=== PATIENT | male | born 1970 | race Caucasian/White ===

== ENCOUNTER 2020-05-25 09:34 | Emergency (ER) | payer SELFPAY ==
[2020-05-25 09:34] VITALS: BP 150/102; PULSE 77; RESP 24; TEMP 36.9; O2SAT 96; BMI 24.3
--- NOTE | 2020-05-25 09:44 | RAD_ITS ---
STUDY: X-RAY - UNILATERAL RIBS ( LEFT ) WITH CHEST REASON FOR EXAM: Male, 49 years old. Pain TECHNIQUE - RIBS: 4 view(s) of the ribs. TECHNIQUE - CHEST: Single PA view of the chest. COMPARISON: None. FINDINGS - RIBS: There is a nondisplaced fracture of the left ninth rib anterolaterally. FINDINGS - CHEST: Minimal increased markings at the left lung base suggestive of a atelectasis. Blunting of the left costophrenic angle. Normal size heart. Normal mediastinum and suresh. Normal visualized pulmonary arteries. Normal visualized aortic arch and descending thoracic aorta. Normal visualized thoracic spine. Normal visualized ribs, clavicles, and shoulders. There is no demonstrated abnormality of the visualized soft tissue structures of the upper abdomen. RAD/Ribs Uni Min 3V w/PA Chest IMPRESSION: RIBS: Nondisplaced fracture of the left ninth rib anterolaterally. CHEST: Blunting of the left costophrenic angle with mild atelectasis at the left lung base. Electronically Signed: Vic Mistry MD at 10:34 EST , Service support ,
[2020-05-25] MEDS: Morphine 4 MG/ML Syringe IV (09:57)
[2020-05-25] MEDS: Ondansetron 4 MG/2 ML Vial IV (09:57)
--- NOTE | 2020-05-25 10:04 | ED.VISSUMM ---
- ER Visit Summary Date of Service: 05/25/20 Chief Complaint: Left rib pain History of Present Illness: The patient is a 49 M who presents with left rib pain that began yesterday. Patient states he slipped in the tub and fell. Patient states he landed on his left lower chest area. Patient describes the pain as sharp and stabbing. Patient states the pain is worse with breathing. Patient does admit to some mild shortness of breath as well as pain with deep breathing. Patient denies any nausea or vomiting. Patient denies any head injury or loss of consciousness. Patient denies any other injuries. Physical Examination: Vital signs are stable except for slightly elevated blood pressure 150/102 and a mild tachypnea of 24. Patient is afebrile. Patient is in no acute distress. Oral mucosa is pink and moist. Neck is supple. Trachea is midline. There is no JVD. Heart was regular rate and rhythm. Lungs were clear and equal bilaterally. Respiratory effort is somewhat limited secondary to pain. There is tenderness over the left lower chest wall. There is no edema or ecchymosis noted. Abdomen is soft. Bowel sounds are normal. There is no tenderness. There is no rebound or guarding noted. Extremities are intact. There is no calf tenderness or edema. Cranial nerves II through XII are intact. There are no focal motor or sensory deficits. Test Results: X-rays of the left ribs were obtained. There are 5 views. On my interpretation, there is a nondisplaced fracture of the ninth rib. There is no pneumothorax. There is no cardiomegaly. There is no acute cardiopulmonary process. Radiologist also interpreted the x-ray and agrees. Emergency Department Course and Treatment: Patient was given a dose of morphine here. Patient was given a prescription for [place]. Patient was given incentive spirometer. Patient was instructed to take 10-15 deep breaths every hour while awake to prevent atelectasis and pneumonia. Patient was instructed to follow-up with his primary care physician in 5 to 7 days. Patient understood and was agreeable with the plan. All questions were answered. Disposition: Discharge home Impression: 1. Left ninth rib fracture This note was generated with [employer] software. It may contain incorrect words, spelling, and punctuation that were not noted in review of the chart prior to signing ED Disposition - Plan for ED Patient: Disposition: Home or Assisted Living Diagnosis: Left rib fracture Instructions: ED Rib Fracture Prescriptions: Hydrocodone Bitart/Apap 5-325 [[place] 5MG-325MG] 1 tab PO Q6H PRN PRN 3 Days #10 tab PRN Reason: Pain Prescription Printed Referrals: Kenrick Nj MD [STAFF PHYSICIAN] -
[2020-05-25 11:01] VITALS: BP 108/62; PULSE 74; RESP 15; O2SAT 96
== END 2020-05-25 11:05 | disposition home or self-care (01) ==
PROVIDERS: Emergency Provider Emergency Medicine
DX: S22.32XA Fracture of one rib, left side, initial encounter for closed fracture (principal); W18.2XXA Fall in (into) shower or empty bathtub, initial encounter; Y93.E1 Activity, personal bathing and showering
CPT/HCPCS: 71101; 96374; 96375; 99285; A4216; J2405

== ENCOUNTER 2021-10-27 18:13 | Emergency (ER) | payer SELFPAY ==
[2021-10-27 18:14] VITALS: BP 144/92; PULSE 101; RESP 15; TEMP 37.7; O2SAT 100; BMI 22.1
--- NOTE | 2021-10-27 18:25 | EX.ED.GENINJ ---
HPI <VENKATESH Hammond - Last Filed: 10/27/21 19:18> History of Present Illness Chief Complaint: Nausea/Vomiting/Diarrhea Narrative Narrative: 51-year-old male with no past medical history presents with 3 days of fever, chills, headache, runny nose, sore throat cough, myalgias, and vomiting and diarrhea. He states his abdomen only hurts when vomiting. Over the last 2 days he has had very little to eat or drink. He took tylenol once yesterday but takes no other medications. No sick contacts. He received 1 COVID-vaccine. PFSH <VENKATESH Hammond Last Filed: 10/27/21 19:18> [facility] Medical History Smoker Home Medications azithromycin 250 mg tablet 250 mg PO DAILY #4 tabs 10/27/21 [Rx Last Taken Unknown] ondansetron 4 mg disintegrating tablet 4 mg PO Q8H PRN nausea and vomiting #14 tabs 10/27/21 [Rx Last Taken Unknown] Allergy/AdvReac Type Severity Reaction Status Date / Time No Known Allergies Allergy Verified 10/27/21 18:17 Social History Smoking Status: Current every day smoker tobacco type: cigarettes ROS <VENKATESH Hammond Last Filed: 10/27/21 19:18> ROS ED ROS Narrative Constitutional: Positive for fever, chills, malaise. Eyes: Negative for visual change. ENT: Positive for sore throat, rhinorrhea. CVS: Negative for palpitations, chest pain, syncope. Respiratory: Positive for cough. Negative for shortness of breath, orthopnea. GI: Positive for nausea, vomiting, diarrhea. Negative for constipation, melena, hematochezia. : Negative for dysuria, hematuria or frequency. Neuro: Positive for headache, negative for motor/sensory dysfunction. Skin: Negative for rash, abscess, or wound. Musc: Negative for joint pain, swelling, trauma. Heme: Negative for easy bruising, bleeding, lymphadenopathy. EXAM <VENKATESH Hammond Last Filed: 10/27/21 19:18> Physical Exam Narrative Exam Narrative: CONST: Patient sitting in no acute distress. EYES: Normal inspection. ENT: Normal inspection, dry mucous membranes. NECK: Normal inspection. RESP: No respiratory distress, CTAB. CVS: Regular rate and rhythm, no murmur, no gallop. ABD: Soft and nontender, no guarding or rebound, nondistended, no hepatosplenomegaly. SKIN: Color normal, no rash, warm, dry, intact. EXTREMITIES: Normal appearance, no pedal edema. NEURO: Oriented x4. PSYCH: Normal affect. Const Vital Signs: 10/27/21 18:14 Temperature 99.8 F H Temperature Source Temporal Pulse Rate 101 H Respiratory Rate 15 Blood Pressure 144/92 H Blood Pressure Mean 109 Pulse Ox 100 Oxygen Delivery Method Room Air <Dr. Tray Penaloza DO - Last Filed: 10/27/21 20:39> Physical Exam Const Vital Signs: 10/27/21 18:14 Temperature 99.8 F H Temperature Source Temporal Pulse Rate 101 H Respiratory Rate 15 Blood Pressure 144/92 H Blood Pressure Mean 109 Pulse Ox 100 Oxygen Delivery Method Room Air MDM <VENKATESH Hammond - Last Filed: 10/27/21 19:18> [facility] MDM Narrative Medical decision making narrative: Patient presents with fever chills myalgias cold symptoms as well as vomiting and diarrhea. He appears ill but nontoxic. Heart rate in low 100s, otherwise normal vital signs. Clinically he has dry mucous membranes. Heart regular, lungs clear, abdomen soft and nontender. My initial concern was for viral illness. COVID 19 test is negative. Labs show white count of 15.8, hyponatremia of 129, normal renal function and no other abnormalities. He was given IV fluids, Tylenol/Toradol and Zofran and is feeling improved. Due to white count a and no other source of infection a CT scan of the abdomen will be obtained. Lab Data Attestation: I reviewed the patient's lab results. Labs: Laboratory Results - last 24 hr 10/27/21 10/27/21 18:30 18:30 WBC 15.8 H RBC 4.32 L Hgb 14.9 Hct 43.6 MCV 100.9 H MCH 34.5 H MCHC 34.2 RDW Std Deviation 44.1 H RDW Coeff of Earle 11.9 Plt Count 228 MPV 9.5 Immature Gran % (Auto) 0.700 Neut % (Auto) 75.0 H Lymph % (Auto) 9.8 L [place] % (Auto) 14.0 H Eos % (Auto) 0.1 Baso % (Auto) 0.4 Absolute Neuts (auto) 11.9 H Absolute Lymphs (auto) 1.55 Nucleated RBC % 0 Differential Comment SCANNED Diff Path Review May foll Sodium 129 L Potassium 4.0 Chloride 97 L Carbon Dioxide 21.0 Anion Gap 11 BUN 16 Creatinine 1.11 Estim Creat Clear Calc 76.62 Est GFR (MDRD) Af Amer 90 Est GFR (MDRD) Non-Af 75 BUN/Creatinine Ratio 14.4 Glucose 108 H Calcium 9.1 Radiography Diagnostic Testing: Clinical Impression(s) from Imaging Studies Abdomen/Pelvis CT 10/27/21 19:03 IMPRESSION: (NOT LISTED IN ORDER OF SIGNIFICANCE) Right lower lobe pneumonia. Right inguinal hernia containing the appendix. There is bilateral neural foraminal stenosis at L4-5 and L5-S1. Other findings as above. Electronically Signed: Roderick Potter MD at 19:52 EDT , <Dr. Tray Penaloza, DO - Last Filed: 10/27/21 20:39> [facility] MDM Narrative Medical decision making narrative: Patient presents with fever chills myalgias cold symptoms as well as vomiting and diarrhea. He appears ill but nontoxic. Heart rate in low 100s, otherwise normal vital signs. Clinically he has dry mucous membranes. Heart regular, lungs clear, abdomen soft and nontender. My initial concern was for viral illness. COVID 19 test is negative. Labs show white count of 15.8, hyponatremia of 129, normal renal function and no other abnormalities. He was given IV fluids, Tylenol/Toradol and Zofran and is feeling improved. Due to white count a and no other source of infection a CT scan of the abdomen will be obtained. This patient was seen with a PA/INTERVENTION SPECIALIST Individually assessed they patient including history and physical. I have reviewed everything on the chart that is available and agree with the documentation provided by the PA/INTERVENTION SPECIALIST including discussion about the assessment, treatment plan, discussion, and return precautions. 51-year-old male presenting with nausea, vomiting, diarrhea. He not specifically complaining of a cough but has had fever and chills. Rapid COVID was negative. Blood work shows a leukocytosis of 15.8, hemoglobin hematocrit are stable. Renal function is normal. Patient slightly hyponatremic at 129. Patient still complaining of diffuse abdominal pain but there is nothing focal on his exam. I did obtain a CT of the abdomen pelvis which does not show any acute intra-abdominal pathology but does note there is a right lower lobe pneumonia. Patient is not hypoxic, tachypneic. I think he is stable for discharge home with antibiotics per document first dose of azithromycin here in the ED and he will be given a 4-day supply for after this. Patient given Zofran for nausea. Return precautions were discussed. Impression: 1. Myalgias 2. Nausea/vomiting 3. Leukocytosis 4. Hyponatremia 5. Right lower lobe pneumonia 6. Abdominal pain Lab Data Labs: Laboratory Results - last 24 hr 10/27/21 10/27/21 18:30 18:30 WBC 15.8 H RBC 4.32 L Hgb 14.9 Hct 43.6 MCV 100.9 H MCH 34.5 H MCHC 34.2 RDW Std Deviation 44.1 H RDW Coeff of Earle 11.9 Plt Count 228 MPV 9.5 Immature Gran % (Auto) 0.700 Neut % (Auto) 75.0 H Lymph % (Auto) 9.8 L [place] % (Auto) 14.0 H Eos % (Auto) 0.1 Baso % (Auto) 0.4 Absolute Neuts (auto) 11.9 H Absolute Lymphs (auto) 1.55 Nucleated RBC % 0 Differential Comment SCANNED Diff Path Review May foll Sodium 129 L Potassium 4.0 Chloride 97 L Carbon Dioxide 21.0 Anion Gap 11 BUN 16 Creatinine 1.11 Estim Creat Clear Calc 76.62 Est GFR (MDRD) Af Amer 90 Est GFR (MDRD) Non-Af 75 BUN/Creatinine Ratio 14.4 Glucose 108 H Calcium 9.1 Radiography Diagnostic Testing: Clinical Impression(s) from Imaging Studies Abdomen/Pelvis CT 10/27/21 19:03 IMPRESSION: (NOT LISTED IN ORDER OF SIGNIFICANCE) Right lower lobe pneumonia. Right inguinal hernia containing the appendix. There is bilateral neural foraminal stenosis at L4-5 and L5-S1. Other findings as above. Electronically Signed: Roderick Potter MD at 19:52 EDT , Discharge Plan Triage Chief Complaint: Nausea/Vomiting/Diarrhea ED Midlevel Provider: Mireille Lam ED Provider: Tray Penaloza Dx/Rx/DC Orders Instructions: ED Pneumonia (Adult), ED Vomiting (Adult), ED Abdominal Pain Unkn Cause Male... Prescriptions: New azithromycin 250 mg tablet 250 mg PO DAILY Qty: 4 0RF ondansetron 4 mg tablet,disintegrating 4 mg PO Q8H PRN (Reason: nausea and vomiting) Qty: 14 0RF Primary Care Provider: Care Physician,No Primary Referrals: Kenrick Nj MD [Med Staff - Circulator] - 3-5 Days Care Physician,No Primary [Primary Care Provider] - Disposition Disposition: Home, Self Care
[2021-10-27] MEDS: 0.9% Normal Saline 1,000 ML 1000 ML IV (18:39)
[2021-10-27] MEDS: Ondansetron 4 MG/2 ML Vial IV (18:40)
[2021-10-27] MEDS: Acetaminophen 500 MG Tablet 1000 MG PO (18:40)
[2021-10-27] MEDS: Ketorolac 15 MG/ML Vial IV (18:40)
[2021-10-27 18:50] LABS: Absolute Lymphocyte Count 1.55 X10^3/uL (0.83-4.51); Absolute Neutrophil Count 11.9 X10^3/uL (2.0-7.7); Basophil# 0.06 X10^3/uL; Basophil% 0.4 % (0-1); Eosinophil# 0.01 X10^3/uL; Eosinophils% 0.1 % (0-5); Hematocrit 43.6 % (40-54); Hemoglobin 14.9 g/dL (13.0-16.5); Lymphocyte # 1.55 X10^3/ul (0.83-4.51); Lymphocyte % 9.8 % (19-41); Mean Corp Hgb Conc 34.2 g/dL (32-36); Mean Corpuscular Hgb 34.5 pg (27.0-32.0); Mean Corpuscular Volume 100.9 fL (80-94); Mean Platelet Vol. 9.5 fl (6.2-12.0); Monocyte# 2.21 X10^3/uL; NRBC Flagged by Analyzer 0 % (0-5); Neutrophil # 11.86 X10^3/uL (2.7-7.7); POSITIVE DIFFERENTIAL YES; Platelet Count 228 K/mm3 (150-450); RBC Distribution Width CV 11.9 % (11.6-14.6); RBC Distribution Width SD 44.1 fl (35.1-43.9); Red Blood Count 4.32 M/mm3 (4.6-6.2); White Blood Count 15.8 K/mm3 (4.4-11.0)
[2021-10-27 18:57] LABS: Differential Indicated SCAN CRITERIA MET
[2021-10-27 19:02] LABS: Anion Gap 11 (5-15); BUN 16 mg/dL (7-18); BUN/Creat Ratio 14.4 RATIO (10-20); Calcium,Total 9.1 mg/dL (8.5-10.1); Chloride 97 mmol/L (98-107); Creatinine, Serum 1.11 mg/dL (0.70-1.30); EST Glomerular Filtration Rate 75 mL/min (>60); Est Glom Filt Rate - Afr Amer 90 mL/min (>60); Estimated Creatinine Clearance 76.62 ml/min; Glucose 108 mg/dL (74-106); Sodium Level 129 mmol/L (136-145)
--- NOTE | 2021-10-27 19:03 | CT_ITS ---
STUDY: CT Abdomen And Pelvis W/ Contrast Injection 10/27/2021 7:49 PM REASON FOR EXAM: Male, 51 years old. Technologist Notes ABDOMINAL PAIN WHEN VOMITING, N/V/D. CABAN, CHILLS, RUNNY NOSE, SORE THROAT, COUGH, FEVER abdominal pain TECHNIQUE: Transaxial images were obtained without oral contrast, and with IV 100mL Isovue-370 intravenous contrast. Individualized dose optimization techniques were used for this CT. COMPARISON: 05/18/12. FINDINGS: Right lower lobe pneumonia. The visualized portions of the heart are within normal limits. Unremarkable liver. Unremarkable gallbladder and extrahepatic biliary system. Unremarkable spleen. Unremarkable pancreas. Unremarkable bilateral adrenal glands. No acute findings of the right kidney. No acute findings of the left kidney. Unremarkable visualized stomach. Unremarkable small intestine. Unremarkable colon. The appendix is visualized and appears unremarkable. Right inguinal hernia containing the appendix. There are no acute findings of the abdominal aorta. Unremarkable inferior vena cava. Subcentimeter mesenteric lymph nodes. Unremarkable urinary bladder. There is a left inguinal hernia containing fat. There is no bowel involvement. There is no incarceration. There is no findings suggesting that this is causing a bowel obstruction. There is an umbilical hernia containing fat. There are diffuse degenerative changes of the visualized lumbar spine. There is bilateral neural foraminal stenosis at L4-5 and L5-S1. CT/Abdomen/Pelvis W IV Cont ONLY IMPRESSION: (NOT LISTED IN ORDER OF SIGNIFICANCE) Right lower lobe pneumonia. Right inguinal hernia containing the appendix. There is bilateral neural foraminal stenosis at L4-5 and L5-S1. Other findings as above. Electronically Signed: Roderick Potter MD at 19:52 EDT ,
[2021-10-27 19:38] LABS: Differential Comment SCANNED
[2021-10-27] MEDS: Azithromycin 250 MG Tablet 500 MG PO (20:12)
[2021-10-29 12:24] LABS: Pathologist Review Reviewed
== END 2021-10-27 20:56 | disposition home or self-care (01) ==
PROVIDERS: Physician Assistant; Emergency Provider Student in an Organized Health Care Education/Training Program; Visit Provider Student in an Organized Health Care Education/Training Program
DX: M79.10 Myalgia, unspecified site (principal); R11.2 Nausea with vomiting, unspecified; D72.829 Elevated white blood cell count, unspecified; E87.1 Hypo-osmolality and hyponatremia; J18.9 Pneumonia, unspecified organism; R10.9 Unspecified abdominal pain; F17.210 Nicotine dependence, cigarettes, uncomplicated
CPT/HCPCS: 74177; 80048; 85025; 87428; 96361; 96374; 96375; 99284; Q9967; A4216; J2405